=== PATIENT | female | born 1970 | race Two or more races ===

== ENCOUNTER 2018-07-11 10:24 | Inpatient (IN) | payer MEDICAID ==
[2018-07-05 12:21] LABS: APPEARANCE,URINE CLEAR; BASOPHILS % (AUTO) 1.1 % (0.0-2.0); BILIRUBIN, URINE NEGATIVE (NEGATIVE); COLOR,URINE PALE YELLOW; EOSINOPHILS % (AUTO) 2.4 % (0.0-3.0); GLUCOSE, URINE (UA) NEGATIVE (NEGATIVE); HEMATOCRIT 39.7 % (37.0-47.0); HEMOGLOBIN 13.6 G/DL (12.0-16.0); KETONES,URINE NEGATIVE (NEGATIVE); LEUKOCYTE ESTERASE ,URINE NEGATIVE (NEGATIVE); LYMPHOCYTES % (AUTO) 33.2 % (20.0-45.0); MEAN CORPUSCULAR VOLUME 87 FL (80-99); MONOCYTES % (AUTO) 8.1 % (1.0-10.0); NEUTROPHILS % (AUTO) 55.3 % (45.0-75.0); NITRITE,URINE NEGATIVE (NEGATIVE); PH,URINE 7 (4.5-8.0); PLATELET COUNT 399 K/UL (150-450); PROTEIN,URINE NEGATIVE (NEGATIVE); RED BLOOD COUNT 4.59 M/UL (4.20-5.40); RED CELL DISTRIBUTION WIDTH 11.4 % (11.6-14.8); UROBILINOGEN,URINE NORMAL MG/DL (0.0-1.0); WHITE BLOOD COUNT 6.4 K/UL (4.8-10.8)
[2018-07-05 12:35] LABS: ANION GAP 7 mmol/L (5-15); BLOOD UREA NITROGEN 11 mg/dL (7-18); CALCIUM 9.8 MG/DL (8.5-10.1); CARBON DIOXIDE 29 MMOL/L (21-32); CHLORIDE 105 MMOL/L (98-107); CREATININE 0.7 MG/DL (0.55-1.30); POTASSIUM 3.6 MMOL/L (3.5-5.1); SODIUM 141 MMOL/L (136-145)
--- NOTE | 2018-07-09 17:30 | Pre-op HX & Phy Repo 2 SIG ---
DATE OF ADMISSION: 07/11/2018 SCHEDULED FOR SURGERY: July 11, 2018. HISTORY OF PRESENT ILLNESS: The patient is a 48-year-old female in overall good health, who presented with a left breast nodule for approximately one month. Mammography was unremarkable but showed dense breast tissue. Ultrasound of the left breast revealed a 1 centimeter nodule periareolar at 3 o'clock. Core biopsy revealed papillary carcinoma without definite invasion seen but invasion could not be excluded. The tumor is estrogen and progesterone receptor positive, HER2 pending. The patient has no prior history of breast disease. She is scheduled to undergo left breast partial mastectomy and left axillary lymph node biopsy. PAST MEDICAL HISTORY: MEDICATIONS: None. ALLERGIES: None. OPERATIONS: None. REVIEW OF SYSTEMS: 3, para 3. She is having menstrual periods every 3 months. PHYSICAL EXAMINATION: GENERAL: The patient is 4 feet 9 inches, 146 pounds. VITAL SIGNS: Within normal limits. HEENT: Within normal limits. LUNGS: Clear. HEART: Regular rhythm. BREASTS: Moderate in size and ptotic. Right breast unremarkable. Left breast reveals a 1 centimeter palpable nodule lateral to the areolar border at 3 o'clock, which is mobile without any overlying skin changes. There are enlarged left axillary lymph nodes, known to be present since 2017 with biopsy showing reactive follicular and interfollicular hyperplasia only. ABDOMEN: Soft. PELVIC: Per primary care. RECTAL: Per primary care. EXTREMITIES: Without edema. NEUROLOGIC: Physiologic. IMPRESSION: 1. 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 2. Enlarged left axillary lymph node x 2 years with biopsy showing reactive follicular and interfollicular hyperplasia in 2017. PLAN: The patient will undergo left breast partial mastectomy and left axillary sentinel lymph node biopsy. I have had a full discussion with the patient regarding the nature of her condition, the nature of the surgery, indications, alternatives, options, and risks including bleeding, infection, need for additional surgery and treatments including radiation therapy and possible chemotherapy and hormonal blockade based on final pathology, scarring, distortion of the breast or nipple, etc. The patient understands and agrees to proceed. Jignesh Santos M.D. DR: Elizabeth JOB#: [id number] CC: SHERLYN
[2018-07-11] VITALS (13 sets, daily range): BP systolic 123–170; BP diastolic 74–105
[~2018-07-11] VITALS: Ht 144.8 cm; Wt 67.1 kg
[~2018-07-11 10:24] MED LIST: NKM
--- NOTE | 2018-07-11 11:53 | Anethesia Preoperative Eval ---
Anesthesia Pre-op PMH/ROS General Date of Evaluation: July 11, 2018 Anesthesiologist: Alfred ASA Score: ASA 3 Mallampati Score Class I : Soft palate, uvula, fauces, pillars visible Class II: Soft palate, uvula, fauces visible Class III: Soft palate, base of uvula visible Class IV: Only hard plate visible Mallampati Classification: Class II Surgeon: Danielle Diagnosis: Left breast cancer Surgical Procedure: Left breast partial mastectomy with axillary lymph node biopsy Anesthesia History: none Family History: no anesthesia problems Allergies: Coded Allergies: No Known Allergies (Unverified , 07/10/18) Medications: see eMAR Patient NPO?: Yes NPO Date: July 11, 2018 NPO Time: 22:00 Past Medical History Cardiovascular: Denies: HTN, CAD, [place], valve dz, arrhythmia, other Pulmonary: Denies: asthma, COPD, DORCAS, other Gastrointestinal/Genitourinary: Denies: GERD, CRI, ESRD, other Neurologic/Psychiatric: Denies: dementia, CVA, depression/anxiety, TIA, other Endocrine: Denies: DM, hypothyroidism, steroids, other HEENT: Denies: cataract (L), cataract (R), glaucoma, [place] (L), [place] (R), other Hematology/Immune: Denies: anemia, DVT, bleeding disorder, other Musculoskeletal/Integumentary: Denies: OA, RA, DJD, DDD, edema, other Other: other - breast cancer PSxH Narrative: Right shoulder lipoma excision Anesthesia Pre-op Phys. Exam Physician Exam Last Vital Signs Date Time Temp Pulse Resp B/P (MAP) Pulse Ox O2 Delivery O2 Flow Rate FiO2 07/11/18 11:07 Room Air 07/11/18 11:06 98.1 72 18 130/81 98 Constitutional: NAD Cardiovascular: RRR Respiratory: CTA Airway Exam Mallampati Score: Class II MO: full ROM: full Teeth: intact Anesthesia Pre-op A/P Labs see chart Studies Pre-op Studies: EKG - sr Risk Assessment & Plan Assessment: ASA III Plan: GA Status Change Before Surgery: No Pre-Antibiotics Drug: Anceg 1g Given Within 1 Hr of Incision: Yes Navya Leung MD July 11, 2018 11:53
[2018-07-11] MEDS ORDERED: Bacitracin 50000 Units Vial ONE (11:57)
[2018-07-11] MEDS ORDERED: Bupivacaine w/Epi 0.5% 30ml Vial INJ ONE (11:57)
[2018-07-11] MEDS ORDERED: Bupivacaine 0.5% Inj 30 ml vial INJ ONE (11:57)
[2018-07-11] MEDS ORDERED: Lidocaine 1% 10mg/ml/Epi 0.005mg/ml 30ml vial INJ ONE (11:57)
[2018-07-11] MEDS ORDERED: Zemuron 50mg/5ml Inj IV ONE (12:04)
--- NOTE | 2018-07-11 12:13 | Pre-Procedure Note/Attestation ---
Pre-Procedure Note/Attestation Complete Prior to Procedure Planned Procedure: left Procedure Narrative: left breast partial mastectomy and left axillary lymph node biopsy Indications for Procedure Pre-Operative Diagnosis: papillary carcinoma left breast, in situ vs. invasive Attestation I attest that I discussed the nature of the procedure; its benefits; risks and complications; and alternatives (and the risks and benefits of such alternatives ), prior to the procedure, with the patient (or the patient's legal sales representative advertising). I attest that, if there was a reasonable possibility of needing a blood transfusion, the patient (or the patient's legal sales representative advertising) was given the [facility] standardized written summary, pursuant to the [place] Blood Safety Act ([place] Health and Safety Code # 1645, as amended). I attest that I re-evaluated the patient just prior to the surgery and that there has been no change in the patient's H&P, except as documented below: none Jignesh Santos MD July 11, 2018 12:13
[2018-07-11] MEDS ORDERED: Sterile Water Irrig 1000ml IRRIG ONE (12:30)
[2018-07-11] MEDS ORDERED: LR 1000ml ONE (12:30)
[2018-07-11] MEDS ORDERED: NS Irrig 1000ml ONE (12:30)
[2018-07-11] MEDS ORDERED: Propofol 200mg/20ml IV ONE (12:32)
[2018-07-11] MEDS ORDERED: fentaNYL 100 mcg/2 mL IV ONE (12:32)
[2018-07-11] MEDS ORDERED: Midazolam 2mg/2ml Inj ONE (12:32)
[2018-07-11] MEDS ORDERED: Lidocaine 1% MPF 10mg/ml 5ml ONE (12:32)
[2018-07-11] MEDS ORDERED: Dexamethasone 4mg/ml vial ONE (12:45)
[2018-07-11] MEDS ORDERED: LR 1000ml 1,000 ML IVLG SCH (12:47)
[2018-07-11] MEDS ORDERED: fentaNYL 100 mcg/2 mL IV PRN (13:00)
[2018-07-11] MEDS ORDERED: Hydromorphone 0.5mg/0.5ml inj IVP PRN (13:00)
[2018-07-11] MEDS ORDERED: Metoclopramide 10mg/2ml Inj IVP PRN (13:00)
[2018-07-11] MEDS ORDERED: Midazolam 2mg/2ml Inj IVP PRN (13:00)
[2018-07-11] MEDS ORDERED: Ketorolac 30mg Inj IV PRN (13:00)
[2018-07-11] MEDS ORDERED: LORazepam Inj 2mg/ml 1ml IV PRN (13:00)
[2018-07-11] MEDS ORDERED: DiphenhydrAMINE 50mg/ml Inj IVP PRN (13:00)
--- NOTE | 2018-07-11 14:08 | Brief Operative Note ---
Immediate Post Operative Note Operative Note Pre-op Diagnosis: papillary carcinoma left breast, in situ vs. invasive Procedure: left breast partial mastectomy and left axillary lymph node biopsy Post-op Diagnosis: same plus markedly enlarged axillary lymph node Post-op Diagnosis: same as pre-op Findings: consistent w/pre-op dx studies Surgeon: carmine Anesthesiologist: mayela Anesthesia: general Specimen: yes - left breast tumor; left axillary lymph nodes Complications: none Condition: stable Fluids: see anesthesia record Estimated Blood Loss: minimal Drains: DEVAN Implant(s) used?: No Jignesh Santos MD July 11, 2018 14:08
--- NOTE | 2018-07-11 14:11 | Immediate Post-Op Evaluation ---
Immediate Post-Op Evalulation Immediate Post-Op Evalulation Procedure: Left breast partial mastectomy with free nipple graft Date of Evaluation: July 11, 2018 Time of Evaluation: 14:11 IV Fluids: 800 Blood Products: 0 Estimated Blood Loss: min Urinary Output: 0 Blood Pressure Systolic: 123 Blood Pressure Diastolic: 74 Pulse Rate: 88 Respiratory Rate: 16 O2 Sat by Pulse Oximetry: 99 Temperature (Fahrenheit): 97.3 Pain Score (1-10): 0 Nausea: No Vomiting: No Complications 0 Patient Status: awake, reacts, patent, none Hydration Status: adequate Drug: Ancef 1g Given Within 1 Hr of Incision: Yes Navya Leung MD July 11, 2018 14:11
--- NOTE | 2018-07-11 14:11 | 48 Hour Post Anesthesia Eval ---
Post Anesthesia Evaluation Procedure: Left breast partial mastectomy with free nipple graft Date of Evaluation: July 11, 2018 Airway: patent Nausea: No Vomiting: No Pain Intensity: 0 Hydration Status: adequate Cardiopulmonary Status: at baseline Mental Status/LOC: patient returned to baseline Post-Anesthesia Complications: 0 Follow-up care needed: ready to discharge Navya Leung MD July 11, 2018 14:11
--- NOTE | 2018-07-11 15:30 | NUR ---
NURSE NOTES: Gerald RN brought patient by bed in stable condition. Alert and oriented x4. Complain of pain 4/10 and will continue to monitor. Skin intact and dry. Surgical dressing intact and dry. DVEAN patent and no output at this time. IV dressing intact and dry. Belonging given to family. Bed lowest position. Call light within reach. Will continue to monitor.
[2018-07-11] MEDS ORDERED: HYDROcodone/Acetamin 5/325 tab ORAL PRN (15:49)
[2018-07-11] MEDS ORDERED: HYDROmorphone 1mg/ml Carpuject SUBQ PRN (15:49)
[2018-07-11] MEDS: D5 1/2NS w/KCl 20mEq 1,000 ML IV SCH (17:29)
--- NOTE | 2018-07-11 19:30 | NUR ---
HAND-OFF: Report given to Dora ALMARAZ. Patient in stable condition. Spoke to regarding patient and new order received. Order read back and carried out.
--- NOTE | 2018-07-11 19:32 | NUR ---
NURSE NOTES: Patient in bed in supine position. Alert and oriented x4, but sleepy. Complain of pain 4/10 and will continue to monitor. Skin intact and dry. Surgical dressing clean, intact and dry. DEVAN patent, minimal output serosanguineous. IV patent, asymptomatic. IVF running. Bed lowest position in lowest position, side rails x2. Asked patient to call if she needs assistance. Call light within reach. Will continue to monitor.
[2018-07-11] MEDS: ceFAZolin sod 1 GM in D5W 55 ML IVPB SCH (22:24)
--- NOTE | 2018-07-11 23:15 | Operative Note - Dictated ---
DATE OF OPERATION: 07/11/2018 SURGEON: Jignesh Santos M.D. ROAD TEST EXAMINER: None. ANESTHESIOLOGIST: Dr. Navya Horan. TYPE OF ANESTHESIA: General. PREOPERATIVE DIAGNOSES: 1. Papillary carcinoma left breast, in situ versus invasive. 2. Enlarged left axillary lymph nodes with prior biopsy in 2017 showing follicular hyperplasia. POSTOPERATIVE DIAGNOSES: 1. Papillary carcinoma left breast, in situ versus invasive. 2. Enlarged left axillary lymph nodes with prior biopsy in 2017 showing follicular hyperplasia. OPERATION PERFORMED: Left breast partial mastectomy and left axillary lymph node dissection. INDICATIONS: The patient presented with a 1 x 2 cm mass in the left breast 3 o'clock just lateral to the areola with core biopsy revealing a papillary tumor with insufficient tissue to determine definitively whether there was invasion or not. It appeared to be papillary carcinoma in situ. The patient presented in 2017 with enlarged left axillary lymph nodes and biopsies revealed only follicular and reactive hyperplasia. She had a lymph node that measured nearly 3 x 4 cm. DESCRIPTION OF PROCEDURE: The patient was taken to the operating room and under general anesthesia with sequential compression device stockings in place and having received intravenous antibiotics, she was prepped and draped in usual fashion incorporating the left upper extremity in the sterile field. I made a transverse incision overlying the mass dissecting flaps circumferentially and performing a wide excision using cautery for hemostasis. The specimen was oriented with suture markers anterior, medial, and superior. The pathologist reviewed the specimen revealing margins to be clear. The field was irrigated and hemostasis seemed to be secured. The incision was closed with interrupted 3-0 Vicryl deep dermal sutures followed by continuous 5-0 Monocryl subcuticular suture. Left axillary vertical incision was made achieving hemostasis with cautery and incising the clavipectoral fascia. The lymph node dissection was performed using the Thunderbeat electrosurgical device incorporating the markedly large node as well as several other adjacent smaller nodes. The field was irrigated and hemostasis was sen to be secured. Through a separate stab incision inferiorly, a 19 mm round Michael drain was placed into the axilla and sutured to the skin with a 3-0 nylon suture. After irrigating and ascertaining that hemostasis was secured, the clavipectoral fascia was closed with interrupted 3-0 Vicryl sutures. Subcutaneous tissues closed with 3-0 Vicryl and skin closed with 4-0 Monocryl continuous subcuticular suture. Mastisol and half-inch Steri-Strips were applied to both incisions followed by dry sterile dressing and placement of a post partial mastectomy surgical brassiere. Final sponge and counts were correct. The patient tolerated the procedure well and left the operating room in good condition. Jignesh Santos M.D. DR: HUMERA JOB#: [id number] CC:
[2018-07-12] VITALS: BP 116/77
[2018-07-12 04:00] VITALS: BP 113/65
[2018-07-12] MEDS: ceFAZolin sod 1 GM in D5W 55 ML IVPB SCH (05:30)
[2018-07-12] MEDS: D5 1/2NS w/KCl 20mEq 1,000 ML IV SCH (05:31)
--- NOTE | 2018-07-12 07:45 | NUR ---
NURSE NOTES: Received report from Sondra ALMARAZ. Patient is awake alert and oriented x4, no acute distress noted. Dressing and surgical bra clean, dry, intact. Left DEVAN compressed. SCD's on. IVF running per order, will d/c per order as patient has been tolerating food and PO fluids. Patient updated on plan of care. Side rails upx2, bed low and locked, call light in reach. Will continue to monitor.
--- NOTE | 2018-07-12 07:54 | NUR ---
HAND-OFF: Report given to RUFINA Leavitt.
[2018-07-12 08:00] VITALS: BP 119/68
[2018-07-12] MEDS ORDERED: Tubing IV Secondary IV ONE (10:09)
--- NOTE | 2018-07-12 11:50 | General Progress Note ---
Progress Note Progress Note AVSS Required dilaudidk SQ last night but only mild pain since. left breast and axilla incisions clean and dry with intact steristrips. DEVAN drain 15cc overnight Imp. doing well Plan: Discharge Rx - none Instructions/limitations/pain control/supplies discussed/provided f/u office 07/18/18 Jignesh Santos MD July 12, 2018 11:50
[2018-07-12 12:00] VITALS: BP 143/85
--- NOTE | 2018-07-12 13:11 | NUR ---
NURSE NOTES: Patient discharged. No acute distress on discharge. IV removed intact. Patient given discharge education and reports understanding of provided education. Patient re-educated on emptying and measuring DEVAN drain output and reports understanding of drain care. Patient provided with drain care supplies. Drain emptied prior to discharge with serosanguinous output noted. Patient given all belongings. Escorted off unit by RN to private vehicle in stable condition. Driven home by family member.
--- NOTE | 2018-07-12 14:10 | NUR ---
CASE MANAGEMENT:REVIEW 07/11/18 48YR OLD FEMALE HERE FOR ELECTIVE SURGERY SI: PAPILLARY CARCINOMA 98.1 72 18 130/81 98% ON RA IS: TO SURGERY: LT BREAST PARTIAL MASTECTOMY AND LT AXILLARY LYMPH NODE DISSECTION : TO MED/SURG POST OP 07/12/18 DISCHARGE HOME INTERQUAL CRITERIA MET
--- NOTE | 2018-07-15 09:35 | Discharge Summary ---
Discharge Summary Hospital Course Date of Admission July 11, 2018 at 15:40 Date of Discharge July 12, 2018 at 13:10 Admitting Diagnosis Papillary carcinoma left breast Reason for Hospitalization: eklective surgery HPI Heidy Reyes is a 48 year old female who was admitted on July 11, 2018 at 15:40 for papillary carcinoma left breast. 48-year-old female in overall good health, presented with a left breast nodule for approximately one month. Mammography was unremarkable but showed dense breast tissue. Ultrasound of the left breast revealed one centimeter nodule periareolar at 3 o 'clock. Core biopsy revealed papillary carcinoma without definite invasion seen , but invasion could not be excluded. The tumor was estrogen and progesterone receptor positive, HER2 pending. The patient had no prior history of breast disease. Patient was admitted for Left breast partial mastectomy and left axillary lymph node dissection . Procedures s/p 07/11/[address] Santos Left breast partial mastectomy and left axillary lymph node dissection Hospital Course status post surgery initially I fluids s/p perioperative antibiotic pain management addressed, and pain controlled DEVAN drain output closely monitored patient was taught how to empty DEVAN drain left breast and axilla incisions clean and dry with intact Steri-Strips patient was able to tolerate diet antiemetic were on board as needed patient ambulated voided freely. patient was stable for discharge home discharge instructions with limitations discussed with patient along with pain control and supplies patient to follow-up with surgeon 07/18/2018 as outpatient at the time of this dictation pathology report still pending, follow up with pathology report Due to rapid and unexpected improvement in patient's condition, patient was discharged in one day FINAL DIAGNOSES 1. Papillary carcinoma left breast, in situ versus invasive. 2. Enlarged left axillary lymph nodes with prior biopsy in 2017 showing follicular hyperplasia. 3. s/p Left breast partial mastectomy and left axillary lymph node dissection. Discharge Condition Upon Discharge: stable Discharge Disposition Patient was discharged home Discharge Instructions Discharge Instructions Special Instructions I have been assigned to complete a D/C Summary on this account. I was not involved in the patient management Kaylee Bennett NP July 15, 2018 09:35
== END 2018-07-12 13:10 | disposition home or self-care (01) | DRG 363 ==
LOC: SUR 10:24 → 3E 15:40
PROC: 07B60ZX Excision of Left Axillary Lymphatic, Open Approach, Diagnostic (ICD-10-PCS; 2018-07-11)
PROC: 0HBU0ZZ Excision of Left Breast, Open Approach (ICD-10-PCS; principal; 2018-07-11 12:30)
DX: C50.912 Malignant neoplasm of unspecified site of left female breast (principal); C77.3 Secondary and unspecified malignant neoplasm of axilla and upper limb lymph nodes; C50.112 Malignant neoplasm of central portion of left female breast; Z17.0 Estrogen receptor positive status [ER+]
CPT/HCPCS: 36415; 80048; 81003; 81025; 85025; 85610; 85730; 93005; 94003; 94150; J2250; J2405